=== PATIENT | male | born 1955 | race Caucasian/White ===

== ENCOUNTER 2021-06-03 12:25 | Inpatient (IN) | payer MEDICARE, OTHER ==
[~2021-06-03] VITALS: Ht 172.7 cm; Wt 66.7 kg
[~2021-06-03 12:25] MED LIST: ASPIRIN ENTERI325 MG PO; ATORVASTATIN CA20 MG PO; LEVAQUIN500 MG PO; METOPROLOL TART25 MG PO
[2021-06-03] MEDS ORDERED: ONDANSETRON HCL INJ 2MG/ML 2ML 2 MG/ML VIAL IV PRN (13:15)
[2021-06-03 15:36] LABS: BASOPHILS % 0.2 % (0.0-1.0); LYMPHOCYTES % 20.4 % (18.0-39.1); MEAN CORPUSCULAR HEMOGLOBIN 30.6 pg (28-32); MEAN CORPUSCULAR HGB CONC 32.8 g/dL (31-35); MEAN CORPUSCULAR VOLUME 93.5 fL (81-99); MONOCYTES # (AUTO) 0.6 (0.2-0.8); MONOCYTES % 11.4 % (4.4-11.3); NEUTROPHILS # (AUTO) 3.4 (2.1-6.9); NEUTROPHILS % 66.8 % (38.7-80.0); RED BLOOD COUNT 1.86 x10e6/uL (4.3-5.7); RED CELL DISTRIBUTION WIDTH 18.6 % (11.7-14.4)
[2021-06-03 15:43] LABS: HEMATOCRIT 17.4 % (38.2-49.6); HEMOGLOBIN 5.7 g/dL (14.0-18.0); PLATELET COUNT 21 x10e3/uL (140-360)
[2021-06-03 15:48] LABS: PARTIAL THROMBOPLASTIN TIME 20.2 seconds (23.8-35.5)
[2021-06-03 15:55] LABS: ALBUMIN 3.1 g/dL (3.5-5.0); ALBUMIN/GLOBULIN RATIO 0.8 (0.8-2.0); ANION GAP 12.8 mmol/L (8-16); CALCIUM 8.1 mg/dL (8.4-10.2); CREATININE, SERUM 0.75 mg/dL (0.72-1.25); POTASSIUM 4.8 mmol/L (3.5-5.1)
[2021-06-03] MEDS ORDERED: FUROSEMIDE INJ 10 MG/ML 2 ML VIAL IV PRN (16:00)
[2021-06-03 16:06] LABS: CREATINE KINASE MB 0.6 ng/mL (0-5.0)
[2021-06-03 16:11] VITALS: BP 121/63
[2021-06-03 16:12] VITALS: BP 121/63
[2021-06-03] MEDS ORDERED: ASPIRIN325 MG PO (16:28)
[2021-06-03] MEDS ORDERED: ATORVASTATIN CA20 MG PO (16:28)
[2021-06-03] MEDS ORDERED: METOPROLOL SUCC25 MG PO (16:28)
[2021-06-03] MEDS ORDERED: SODIUM CHLORIDE 0.9% 250ML 250 ML IV ONE (16:30)
[2021-06-03] MEDS: BENZONATATE 100 MG CAP PO SCH (17:30)
[2021-06-03 20:22] VITALS: BP 99/57
[2021-06-03 20:27] VITALS: BP 99/57
[2021-06-03] MEDS: ATORVASTATIN 20 MG TAB PO SCH (20:40)
[2021-06-04] VITALS (9 sets, daily range): BP systolic 99–139; BP diastolic 56–93
[2021-06-04] MEDS ORDERED: SODIUM CHLORIDE 0.9% 500ML 500 ML ONE
[2021-06-04 05:31] LABS: BASOPHILS % 0.4 % (0.0-1.0); EOSINOPHILS % 0.2 % (0.0-6.0); HEMATOCRIT 26.6 % (38.2-49.6); HEMOGLOBIN 8.9 g/dL (14.0-18.0); LYMPHOCYTES # (AUTO) 1.1 (1.0-3.2); LYMPHOCYTES % 21.6 % (18.0-39.1); MEAN CORPUSCULAR HEMOGLOBIN 30.3 pg (28-32); MEAN CORPUSCULAR HGB CONC 33.5 g/dL (31-35); MEAN CORPUSCULAR VOLUME 90.5 fL (81-99); MONOCYTES # (AUTO) 0.6 (0.2-0.8); NEUTROPHILS # (AUTO) 3.3 (2.1-6.9); RED BLOOD COUNT 2.94 x10e6/uL (4.3-5.7); RED CELL DISTRIBUTION WIDTH 16.5 % (11.7-14.4)
[2021-06-04 05:54] LABS: PLATELET COUNT 10 x10e3/uL (140-360)
[2021-06-04 06:14] LABS: ALBUMIN/GLOBULIN RATIO 0.9 (0.8-2.0); ANION GAP 11.4 mmol/L (8-16); CALCIUM 8.5 mg/dL (8.4-10.2); CREATININE, SERUM 0.72 mg/dL (0.72-1.25); POTASSIUM 4.4 mmol/L (3.5-5.1)
[2021-06-04 06:30] LABS: MAGNESIUM 2.1 MG/DL (1.3-2.1)
[2021-06-04 06:37] LABS: CHOL/HDL RATIO 3.3 (3.9-4.7)
[2021-06-04] MEDS: FAMOTIDINE 20 MG TAB PO SCH ×2 (08:00→17:31)
[2021-06-04 08:03] LABS: LYMPHOCYTES % (MANUAL) 20 % (19-48); MONOCYTES % (MANUAL) 9 % (3.4-9.0); NEUTROPHILS % (MANUAL) 68 % (40-74); NUCLEATED RED BLOOD CELLS 1; PLATELET ESTIMATE MARKEDLY DECREASED; PLATELET MORPHOLOGY COMMENT NORMAL; RBC MORPHOLOGY COMMENT NORMAL
[2021-06-04] MEDS: METOPROLOL SUCCINATE 25 MG TAB XL PO SCH (09:00)
[2021-06-04] MEDS: BENZONATATE 100 MG CAP PO SCH ×3 (09:00→17:31)
[2021-06-04] MEDS: ASPIRIN 325 MG TAB PO SCH (09:00)
[2021-06-04] MEDS ORDERED: SODIUM CHLORIDE 0.9% 250ML 250 ML ONE (12:37)
[2021-06-04 17:21] LABS: BASOPHILS % 0.2 % (0.0-1.0); EOSINOPHILS % 0.2 % (0.0-6.0); HEMATOCRIT 27.8 % (38.2-49.6); HEMOGLOBIN 9.1 g/dL (14.0-18.0); LYMPHOCYTES # (AUTO) 1.2 (1.0-3.2); MEAN CORPUSCULAR HEMOGLOBIN 30.4 pg (28-32); MEAN CORPUSCULAR HGB CONC 32.7 g/dL (31-35); MONOCYTES # (AUTO) 0.6 (0.2-0.8); MONOCYTES % 10.5 % (4.4-11.3); NEUTROPHILS # (AUTO) 3.4 (2.1-6.9); RED BLOOD COUNT 2.99 x10e6/uL (4.3-5.7); RED CELL DISTRIBUTION WIDTH 17.1 % (11.7-14.4)
[2021-06-04 17:25] LABS: PLATELET COUNT 53 x10e3/uL (140-360)
[2021-06-04] MEDS: ATORVASTATIN 20 MG TAB PO SCH (20:39)
[2021-06-05] VITALS (7 sets, daily range): BP systolic 117–161; BP diastolic 67–79
[2021-06-05 06:12] LABS: BASOPHILS % 0.2 % (0.0-1.0); EOSINOPHILS % 0.2 % (0.0-6.0); HEMATOCRIT 26.1 % (38.2-49.6); HEMOGLOBIN 8.5 g/dL (14.0-18.0); LYMPHOCYTES # (AUTO) 1.3 (1.0-3.2); LYMPHOCYTES % 28.1 % (18.0-39.1); MEAN CORPUSCULAR HEMOGLOBIN 29.9 pg (28-32); MEAN CORPUSCULAR HGB CONC 32.6 g/dL (31-35); MEAN CORPUSCULAR VOLUME 91.9 fL (81-99); MONOCYTES # (AUTO) 0.5 (0.2-0.8); MONOCYTES % 10.8 % (4.4-11.3); NEUTROPHILS # (AUTO) 2.6 (2.1-6.9); NEUTROPHILS % 59.4 % (38.7-80.0); RED BLOOD COUNT 2.84 x10e6/uL (4.3-5.7)
[2021-06-05 06:16] LABS: PLATELET COUNT 36 x10e3/uL (140-360)
[2021-06-05 06:41] LABS: INR 1.02; PROTHROMBIN TIME 14.2 seconds (11.9-14.5)
[2021-06-05] MEDS: FAMOTIDINE 20 MG TAB PO SCH ×2 (07:30→17:21)
[2021-06-05 08:05] LABS: BAND NEUTROPHILS % (MANUAL) 1 %; LYMPHOCYTES % (MANUAL) 22 % (19-48); MONOCYTES % (MANUAL) 10 % (3.4-9.0); NEUTROPHILS % (MANUAL) 67 % (40-74)
[2021-06-05 08:06] LABS: PLATELET ESTIMATE MARKEDLY DECREASED; PLATELET MORPHOLOGY COMMENT NORMAL; RBC MORPHOLOGY COMMENT NORMAL
[2021-06-05] MEDS: ASPIRIN 325 MG TAB PO SCH (09:00)
[2021-06-05] MEDS: METOPROLOL SUCCINATE 25 MG TAB XL PO SCH (09:00)
[2021-06-05] MEDS: BENZONATATE 100 MG CAP PO SCH ×2 (09:24→17:21)
[2021-06-05] MEDS ORDERED: LIDOCAINE HCL 1% LOCAL INJ 20 ML VIAL ONE (14:33)
[2021-06-05] MEDS ORDERED: FENTANYL CITRATE/PF 100MCG/2 ML INJ ONE (15:24)
[2021-06-05] MEDS ORDERED: MIDAZOLAM HCL 2 MG/2 ML VIAL ONE (15:24)
[2021-06-05] MEDS ORDERED: SODIUM CHLORIDE 0.9% 250ML 250 ML ONE (15:24)
[2021-06-05] MEDS: ATORVASTATIN 20 MG TAB PO SCH (20:31)
[2021-06-06] VITALS: BP 118/75
[2021-06-06 04:00] VITALS: BP 131/76
[2021-06-06 05:29] LABS: BASOPHILS % 0.3 % (0.0-1.0); EOSINOPHILS % 0.3 % (0.0-6.0); HEMATOCRIT 24.5 % (38.2-49.6); LYMPHOCYTES # (AUTO) 0.7 (1.0-3.2); LYMPHOCYTES % 20.4 % (18.0-39.1); MEAN CORPUSCULAR HEMOGLOBIN 30.1 pg (28-32); MEAN CORPUSCULAR HGB CONC 32.7 g/dL (31-35); MEAN CORPUSCULAR VOLUME 92.1 fL (81-99); MONOCYTES # (AUTO) 0.4 (0.2-0.8); MONOCYTES % 11.2 % (4.4-11.3); NEUTROPHILS # (AUTO) 2.4 (2.1-6.9); RED BLOOD COUNT 2.66 x10e6/uL (4.3-5.7); RED CELL DISTRIBUTION WIDTH 16.8 % (11.7-14.4)
[2021-06-06 05:44] LABS: PLATELET COUNT 22 x10e3/uL (140-360)
[2021-06-06 05:47] LABS: ALBUMIN 2.8 g/dL (3.5-5.0); ALBUMIN/GLOBULIN RATIO 0.9 (0.8-2.0); CREATININE, SERUM 0.71 mg/dL (0.72-1.25)
[2021-06-06 07:12] LABS: LYMPHOCYTES % (MANUAL) 13 % (19-48); MONOCYTES % (MANUAL) 9 % (3.4-9.0); MYELOCYTES % (MANUAL) 1 % (0-0); NEUTROPHILS % (MANUAL) 77 % (40-74)
[2021-06-06 07:13] LABS: PLATELET ESTIMATE MARKEDLY DECREASED; PLATELET MORPHOLOGY COMMENT NORMAL; RBC MORPHOLOGY COMMENT NORMAL
[2021-06-06 08:00] VITALS: BP 136/77
[2021-06-06] MEDS ORDERED: ONDANSETRON HCL 4 MG ORAL DISINTEGRATING TAB SL PRN (08:00)
[2021-06-06 08:02] VITALS: BP 136/77
[2021-06-06] MEDS: BENZONATATE 100 MG CAP PO SCH (08:44)
[2021-06-06] MEDS: FAMOTIDINE 20 MG TAB PO SCH (08:44)
[2021-06-06] MEDS: METOPROLOL SUCCINATE 25 MG TAB XL PO SCH (08:47)
[2021-06-06] MEDS: ASPIRIN 325 MG TAB PO SCH (08:47)
[2021-06-06 12:00] VITALS: BP 125/73
[2021-06-06] MEDS ORDERED: DOCUSATE SODIUM 100 MG CAP PO ONE (15:00)
[2021-06-06] MEDS ORDERED: SODIUM CHLORIDE 0.9% 250ML 250 ML ONE (15:19)
[2021-06-06 16:00] VITALS: BP 135/76
[2021-06-06] MEDS ORDERED: HEPARIN 500 UNITS/5ML MDV INJ ONE (17:15)
== END 2021-06-06 17:30 | disposition home or self-care (01) | DRG 835 ==
LOC: ER 12:35 → ERHOLD 13:18 → MED/SURG3 15:40 → OBSVTOIN 06-05 12:13 → UNDODISIN 06-06 10:59
PROVIDERS: ADMIT Internal Medicine; ATTEND Internal Medicine
PROC: 30233N1 Transfusion of Nonautologous Red Blood Cells into Peripheral Vein, Percutaneous Approach (ICD-10-PCS; 2021-06-03)
PROC: 30233R1 Transfusion of Nonautologous Platelets into Peripheral Vein, Percutaneous Approach (ICD-10-PCS; 2021-06-04)
PROC: 07DR3ZX Extraction of Iliac Bone Marrow, Percutaneous Approach, Diagnostic (ICD-10-PCS; principal; 2021-06-05)
DX: C92.00 Acute myeloblastic leukemia, not having achieved remission (principal); D62 Acute posthemorrhagic anemia; D61.818 Other pancytopenia; Z85.118 Personal history of other malignant neoplasm of bronchus and lung; Z87.891 Personal history of nicotine dependence; I25.10 Atherosclerotic heart disease of native coronary artery without angina pectoris; D63.0 Anemia in neoplastic disease; Z95.5 Presence of coronary angioplasty implant and graft; J44.9 Chronic obstructive pulmonary disease, unspecified; E11.51 Type 2 diabetes mellitus with diabetic peripheral angiopathy without gangrene; D69.59 Other secondary thrombocytopenia; Z85.21 Personal history of malignant neoplasm of larynx; D46.9 Myelodysplastic syndrome, unspecified; Z79.4 Long term (current) use of insulin
CPT/HCPCS: 36415; 38222; 74470; 77012; 80053; 80061; 82550; 82553; 83036; 83735; 83880; 84484; 85025; 85610; 85730; 86850; 86900; 86920; 93005; 94799; 99284; G0378; J2001; J2250; J2405; J3010; J7040; J7050; P9016; P9034; U0002

== ENCOUNTER 2021-06-11 15:11 | Emergency (ER) | payer MEDICARE ==
[~2021-06-11] VITALS: Ht 172.7 cm; Wt 66.7 kg
[~2021-06-11 15:11] MED LIST changes: +ASPIRIN325 MG PO; +METOPROLOL SUCC25 MG PO
[2021-06-11 16:05] LABS: BASOPHILS % 0.3 % (0.0-1.0); EOSINOPHILS % 0.6 % (0.0-6.0); HEMATOCRIT 22.7 % (38.2-49.6); HEMOGLOBIN 7.3 g/dL (14.0-18.0); LYMPHOCYTES # (AUTO) 0.8 (1.0-3.2); LYMPHOCYTES % 25.4 % (18.0-39.1); MEAN CORPUSCULAR HEMOGLOBIN 30.7 pg (28-32); MEAN CORPUSCULAR HGB CONC 32.2 g/dL (31-35); MEAN CORPUSCULAR VOLUME 95.4 fL (81-99); MONOCYTES # (AUTO) 0.3 (0.2-0.8); MONOCYTES % 8.8 % (4.4-11.3); NEUTROPHILS # (AUTO) 2.1 (2.1-6.9); NEUTROPHILS % 64.6 % (38.7-80.0); RED BLOOD COUNT 2.38 x10e6/uL (4.3-5.7); RED CELL DISTRIBUTION WIDTH 17.1 % (11.7-14.4)
[2021-06-11 16:09] LABS: PLATELET COUNT 5 x10e3/uL (140-360)
[2021-06-11 16:21] LABS: INR 0.96; PROTHROMBIN TIME 13.5 seconds (11.9-14.5)
[2021-06-11 16:22] LABS: PARTIAL THROMBOPLASTIN TIME 29.4 seconds (23.8-35.5)
[2021-06-11 16:30] LABS: ANION GAP 12.1 mmol/L (8-16); CALCIUM 8.5 mg/dL (8.4-10.2); CREATININE, SERUM 0.83 mg/dL (0.72-1.25); POTASSIUM 4.1 mmol/L (3.5-5.1)
[2021-06-11] MEDS ORDERED: SODIUM CHLORIDE 0.9% 250ML 250 ML IV ONE (18:30)
[2021-06-11] MEDS ORDERED: SODIUM CHLORIDE 0.9% 250ML 250 ML ONE (18:34)
[2021-06-11 23:09] VITALS: BP 131/73
== END 2021-06-11 22:40 | disposition home or self-care (01) ==
LOC: ER 15:34
DX: D64.9 Anemia, unspecified (principal); E78.5 Hyperlipidemia, unspecified; Z85.818 Personal history of malignant neoplasm of other sites of lip, oral cavity, and pharynx; Z85.118 Personal history of other malignant neoplasm of bronchus and lung; Z95.5 Presence of coronary angioplasty implant and graft
CPT/HCPCS: 36415; 80048; 85025; 85049; 85610; 85730; 86850; 86900; 99284; J7050; P9034

== ENCOUNTER 2021-06-19 14:30 | Observation (INO) | payer MEDICARE ==
[~2021-06-19] VITALS: Ht 172.7 cm; Wt 64.0 kg
[2021-06-19] MEDS ORDERED: SODIUM CHLORIDE 0.9% 1000ML 1,000 ML IV STA (14:52)
[2021-06-19 15:23] LABS: BASOPHILS % 0.2 % (0.0-1.0); EOSINOPHILS # (AUTO) 0.1 (0.0-0.4); EOSINOPHILS % 1.1 % (0.0-6.0); LYMPHOCYTES # (AUTO) 1.1 (1.0-3.2); LYMPHOCYTES % 25.3 % (18.0-39.1); MEAN CORPUSCULAR HEMOGLOBIN 30.2 pg (28-32); MEAN CORPUSCULAR HGB CONC 32.3 g/dL (31-35); MEAN CORPUSCULAR VOLUME 93.6 fL (81-99); MONOCYTES # (AUTO) 0.5 (0.2-0.8); NEUTROPHILS # (AUTO) 2.7 (2.1-6.9); NEUTROPHILS % 60.3 % (38.7-80.0); RED BLOOD COUNT 2.02 x10e6/uL (4.3-5.7); RED CELL DISTRIBUTION WIDTH 17.2 % (11.7-14.4)
[2021-06-19 15:28] LABS: HEMOGLOBIN 6.1 g/dL (14.0-18.0)
[2021-06-19 15:29] LABS: HEMATOCRIT 18.9 % (38.2-49.6); PLATELET COUNT 5 x10e3/uL (140-360)
[2021-06-19 15:30] LABS: INR 1.04; PARTIAL THROMBOPLASTIN TIME 29.3 seconds (23.8-35.5); PROTHROMBIN TIME 14.4 seconds (11.9-14.5)
[2021-06-19 15:37] LABS: ALBUMIN 3.6 g/dL (3.5-5.0); ALBUMIN/GLOBULIN RATIO 1.1 (0.8-2.0); ANION GAP 12.2 mmol/L (8-16); CALCIUM 8.3 mg/dL (8.4-10.2); CREATININE, SERUM 0.78 mg/dL (0.72-1.25); POTASSIUM 4.2 mmol/L (3.5-5.1)
[2021-06-19 15:44] LABS: CREATINE KINASE MB 0.4 ng/mL (0-5.0)
[2021-06-19] MEDS ORDERED: SODIUM CHLORIDE 0.9% 250ML 250 ML IV ONE (15:45)
[2021-06-19] MEDS ORDERED: HYDROCODONE/APAP 7.5MG-325MG 1 EA TAB PO PRN (16:00)
[2021-06-19] MEDS ORDERED: ONDANSETRON HCL INJ 2MG/ML 2ML 2 MG/ML VIAL IV PRN (16:15)
[2021-06-19 20:00] VITALS: BP 112/59
[2021-06-19 20:26] VITALS: BP 112/59
[2021-06-19] MEDS ORDERED: SODIUM CHLORIDE 0.9% 250ML 250 ML ONE (20:47)
[2021-06-19 20:59] VITALS: BP 112/59
[2021-06-19] MEDS: FUROSEMIDE INJ 10 MG/ML 2 ML VIAL IV PRN (23:24)
[2021-06-20] VITALS (8 sets, daily range): BP systolic 100–156; BP diastolic 52–89
[2021-06-20] MEDS: FUROSEMIDE INJ 10 MG/ML 2 ML VIAL IV PRN ×2 (02:55→06:05)
[2021-06-20] MEDS ORDERED: SODIUM CHLORIDE 0.9% 250ML 250 ML ONE (08:09)
[2021-06-20] MEDS: CEFTRIAXONE 1 GM in SODIUM CHLORIDE 0.9% 50ML 50 ML IV SCH (09:30)
[2021-06-20 09:55] LABS: BASOPHILS % 0.2 % (0.0-1.0); EOSINOPHILS # (AUTO) 0.1 (0.0-0.4); EOSINOPHILS % 1.1 % (0.0-6.0); HEMATOCRIT 25.6 % (38.2-49.6); HEMOGLOBIN 8.8 g/dL (14.0-18.0); LYMPHOCYTES # (AUTO) 1.1 (1.0-3.2); LYMPHOCYTES % 25.3 % (18.0-39.1); MEAN CORPUSCULAR HEMOGLOBIN 30.1 pg (28-32); MEAN CORPUSCULAR HGB CONC 34.4 g/dL (31-35); MEAN CORPUSCULAR VOLUME 87.7 fL (81-99); MONOCYTES # (AUTO) 0.5 (0.2-0.8); MONOCYTES % 12.3 % (4.4-11.3); NEUTROPHILS # (AUTO) 2.6 (2.1-6.9); NEUTROPHILS % 59.5 % (38.7-80.0); RED BLOOD COUNT 2.92 x10e6/uL (4.3-5.7); RED CELL DISTRIBUTION WIDTH 16.4 % (11.7-14.4)
[2021-06-20 10:05] LABS: PLATELET COUNT 37 x10e3/uL (140-360)
[2021-06-20 10:15] LABS: ALBUMIN 3.5 g/dL (3.5-5.0); ANION GAP 9.8 mmol/L (8-16); CALCIUM 8.4 mg/dL (8.4-10.2); CREATININE, SERUM 0.77 mg/dL (0.72-1.25); POTASSIUM 3.8 mmol/L (3.5-5.1)
[2021-06-20] MEDS ORDERED: CEFTRIAXONE 1 GM in SODIUM CHLORIDE 0.9% 50ML 50 ML IV SCH (17:00)
[2021-06-21 04:00] VITALS: BP 105/70
[2021-06-21 05:46] LABS: EOSINOPHILS % 1.4 % (0.0-6.0); HEMATOCRIT 26.3 % (38.2-49.6); HEMOGLOBIN 8.8 g/dL (14.0-18.0); LYMPHOCYTES # (AUTO) 0.9 (1.0-3.2); LYMPHOCYTES % 31.2 % (18.0-39.1); MEAN CORPUSCULAR HEMOGLOBIN 30.1 pg (28-32); MEAN CORPUSCULAR HGB CONC 33.5 g/dL (31-35); MEAN CORPUSCULAR VOLUME 90.1 fL (81-99); MONOCYTES # (AUTO) 0.3 (0.2-0.8); MONOCYTES % 10.1 % (4.4-11.3); NEUTROPHILS # (AUTO) 1.6 (2.1-6.9); NEUTROPHILS % 56.6 % (38.7-80.0); RED BLOOD COUNT 2.92 x10e6/uL (4.3-5.7); RED CELL DISTRIBUTION WIDTH 16.2 % (11.7-14.4)
[2021-06-21 05:59] LABS: ANION GAP 10.9 mmol/L (8-16); CALCIUM 8.1 mg/dL (8.4-10.2); CREATININE, SERUM 0.71 mg/dL (0.72-1.25); POTASSIUM 3.9 mmol/L (3.5-5.1)
[2021-06-21 06:02] LABS: PLATELET COUNT 26 x10e3/uL (140-360)
[2021-06-21 07:02] LABS: EOSINOPHILS % (MANUAL) 1 % (0-7); LYMPHOCYTES % (MANUAL) 24 % (19-48); MONOCYTES % (MANUAL) 8 % (3.4-9.0); NEUTROPHILS % (MANUAL) 67 % (40-74); PLATELET ESTIMATE MARKEDLY DECREASED; PLATELET MORPHOLOGY COMMENT NORMAL; RBC MORPHOLOGY COMMENT NORMAL
[2021-06-21 08:49] VITALS: BP 134/98
[2021-06-21] MEDS: CEFTRIAXONE 1 GM in SODIUM CHLORIDE 0.9% 50ML 50 ML IV SCH (09:07)
[2021-06-21 09:08] VITALS: BP 134/98
[2021-06-21 13:01] VITALS: BP 108/70
[2021-06-21] MEDS ORDERED: SODIUM CHLORIDE 0.9% 250ML 250 ML ONE (15:02)
[2021-06-21 16:33] VITALS: BP 134/77
[2021-06-21] MEDS ORDERED: HEPARIN 500 UNITS/5ML MDV INJ PRN (17:00)
== END 2021-06-21 17:56 | disposition home or self-care (01) ==
LOC: ER 14:48 → ERHOLD 16:22 → MED/SURG 19:03
PROVIDERS: ADMIT Internal Medicine; ATTEND Internal Medicine
DX: C92.00 Acute myeloblastic leukemia, not having achieved remission (principal); D50.0 Iron deficiency anemia secondary to blood loss (chronic); D61.818 Other pancytopenia; D63.8 Anemia in other chronic diseases classified elsewhere; C34.90 Malignant neoplasm of unspecified part of unspecified bronchus or lung; E78.5 Hyperlipidemia, unspecified; I25.10 Atherosclerotic heart disease of native coronary artery without angina pectoris; Z95.5 Presence of coronary angioplasty implant and graft; Z20.822 Contact with and (suspected) exposure to COVID-19; D69.6 Thrombocytopenia, unspecified
CPT/HCPCS: 36415 ×3; 36430; 80048; 80053 ×2; 82550; 82553; 84484; 85025 ×3; 85610; 85730; 86850; 86900; 86920; 93005; 94799 ×3; 99284; C9113; G0378 ×3; J0696 ×2; J1940 ×2; J7030; J7050 ×3; P9016; P9034 ×2; U0002

== ENCOUNTER 2021-07-02 14:08 | Inpatient (IN) | payer MEDICARE ==
[~2021-07-02] VITALS: Ht 175.3 cm; Wt 67.6 kg
[2021-07-02] MEDS ORDERED: SODIUM CHLORIDE 0.9% 1000ML 1,000 ML IV STA (15:47)
[2021-07-02] MEDS ORDERED: SODIUM CHLORIDE 0.9% 1000ML 1,000 ML IV ONE (16:15)
[2021-07-02 16:29] LABS: EOSINOPHILS % 1.3 % (0.0-6.0); LYMPHOCYTES # (AUTO) 0.6 (1.0-3.2); LYMPHOCYTES % 18.3 % (18.0-39.1); MEAN CORPUSCULAR HEMOGLOBIN 29.9 pg (28-32); MEAN CORPUSCULAR HGB CONC 33.3 g/dL (31-35); MEAN CORPUSCULAR VOLUME 89.8 fL (81-99); MONOCYTES # (AUTO) 0.6 (0.2-0.8); MONOCYTES % 20.3 % (4.4-11.3); NEUTROPHILS # (AUTO) 1.8 (2.1-6.9); NEUTROPHILS % 58.8 % (38.7-80.0); RED BLOOD COUNT 1.67 x10e6/uL (4.3-5.7); RED CELL DISTRIBUTION WIDTH 15.8 % (11.7-14.4)
[2021-07-02 16:34] LABS: PLATELET COUNT 4 x10e3/uL (140-360)
[2021-07-02 16:41] LABS: INR 1.13; PROTHROMBIN TIME 15.4 seconds (11.9-14.5)
[2021-07-02 16:42] LABS: PARTIAL THROMBOPLASTIN TIME 31.1 seconds (23.8-35.5)
[2021-07-02] MEDS ORDERED: FUROSEMIDE INJ 10 MG/ML 2 ML VIAL IV PRN (16:45)
[2021-07-02] MEDS ORDERED: SODIUM CHLORIDE 0.9% 250ML 250 ML IV ONE (16:45)
[2021-07-02 16:50] LABS: ALBUMIN 3.2 g/dL (3.5-5.0); ANION GAP 11.3 mmol/L (8-16); CALCIUM 7.6 mg/dL (8.4-10.2); CREATININE, SERUM 0.71 mg/dL (0.72-1.25); POTASSIUM 4.3 mmol/L (3.5-5.1)
[2021-07-02 16:57] LABS: CREATINE KINASE MB 0.4 ng/mL (0-5.0)
[2021-07-02] MEDS ORDERED: ONDANSETRON HCL INJ 2MG/ML 2ML 2 MG/ML VIAL IV PRN ×2 (17:30→18:30)
[2021-07-02] MEDS ORDERED: POTASSIUM CHLORIDE 20 MEQ TAB CR PO PRN (18:30)
[2021-07-02] MEDS ORDERED: HYDROCODONE/APAP 5MG-325MG TAB PO PRN (18:30)
[2021-07-02] MEDS ORDERED: DOCUSATE SODIUM 100 MG CAP PO PRN (18:30)
[2021-07-02] MEDS ORDERED: ALBUTEROL/IPRATROPIUM 3 ML NEB NEB PRN (18:30)
[2021-07-02] MEDS ORDERED: DIPHENHYDRAMINE HCL 25 MG CAP PO PRN (18:30)
[2021-07-02] MEDS ORDERED: LIDOCAINE 4% PATCH TP PRN (18:30)
[2021-07-02] MEDS ORDERED: MELATONIN 5 MG TABLET PO PRN (18:30)
[2021-07-02] MEDS ORDERED: ACETAMINOPHEN 325 MG TAB PO PRN (18:30)
[2021-07-02] MEDS ORDERED: DEXTROSE 50% SYRINGE 50 ML IV PRN (18:30)
[2021-07-02 19:47] LABS: HYPOCHROMASIA MODERATE; LYMPHOCYTES % (MANUAL) 12 % (19-48); MONOCYTES % (MANUAL) 10 % (3.4-9.0); NEUTROPHILS % (MANUAL) 77 % (40-74); PLATELET MORPHOLOGY COMMENT NORMAL; RBC MORPHOLOGY COMMENT NORMAL
[2021-07-02 19:48] LABS: PLATELET ESTIMATE MARKEDLY DECREASED
[2021-07-02] MEDS: PIPERACILLIN/TAZOBACTAM 3.375 GM in SODIUM CHLORIDE 0.9% 50ML 50 ML IV SCH (20:58)
[2021-07-02 21:15] VITALS: BP 122/66
[2021-07-02 21:19] VITALS: BP 123/70
[2021-07-02 21:21] VITALS: BP 123/70
[2021-07-02] MEDS ORDERED: SODIUM CHLORIDE 0.9% 250ML 250 ML ONE ×2 (21:55)
[2021-07-02 22:00] VITALS: BP 108/49
[2021-07-02 23:00] VITALS: BP 108/57
[2021-07-03] VITALS (13 sets, daily range): BP systolic 115–136; BP diastolic 57–77
[2021-07-03] MEDS: PIPERACILLIN/TAZOBACTAM 3.375 GM in SODIUM CHLORIDE 0.9% 50ML 50 ML IV SCH ×2 (05:40→12:18)
[2021-07-03 07:43] LABS: BASOPHILS % 0.2 % (0.0-1.0); EOSINOPHILS # (AUTO) 0.1 (0.0-0.4); EOSINOPHILS % 1.6 % (0.0-6.0); HEMATOCRIT 31.8 % (38.2-49.6); HEMOGLOBIN 10.5 g/dL (14.0-18.0); LYMPHOCYTES # (AUTO) 0.9 (1.0-3.2); LYMPHOCYTES % 20.5 % (18.0-39.1); MEAN CORPUSCULAR HEMOGLOBIN 29.3 pg (28-32); MEAN CORPUSCULAR VOLUME 88.8 fL (81-99); MONOCYTES # (AUTO) 0.7 (0.2-0.8); MONOCYTES % 16.4 % (4.4-11.3); NEUTROPHILS # (AUTO) 2.6 (2.1-6.9); NEUTROPHILS % 59.5 % (38.7-80.0); RED BLOOD COUNT 3.58 x10e6/uL (4.3-5.7); RED CELL DISTRIBUTION WIDTH 15.3 % (11.7-14.4)
[2021-07-03 07:46] LABS: PLATELET COUNT 18 x10e3/uL (140-360)
[2021-07-03 08:01] LABS: ANION GAP 11.1 mmol/L (8-16); CALCIUM 7.8 mg/dL (8.4-10.2); CREATININE, SERUM 0.68 mg/dL (0.72-1.25); POTASSIUM 4.1 mmol/L (3.5-5.1)
[2021-07-03] MEDS ORDERED: SODIUM CHLORIDE 0.9% 250ML 250 ML ONE (11:13)
[2021-07-03 11:34] LABS: EOSINOPHILS % (MANUAL) 3 % (0-7); LYMPHOCYTES % (MANUAL) 20 % (19-48); MONOCYTES % (MANUAL) 9 % (3.4-9.0); MYELOCYTES % (MANUAL) 2 % (0-0); NEUTROPHILS % (MANUAL) 66 % (40-74); NUCLEATED RED BLOOD CELLS 1; PLATELET ESTIMATE MARKEDLY DECREASED; PLATELET MORPHOLOGY COMMENT NORMAL; RBC MORPHOLOGY COMMENT NORMAL
== END 2021-07-03 15:26 | disposition hospice, home (50) | DRG 834 ==
LOC: ER 15:47 → ERHOLD 17:29 → OBSVTOIN 19:46 → ICU 20:43
PROVIDERS: ADMIT Internal Medicine; ATTEND Internal Medicine
PROC: 30233R1 Transfusion of Nonautologous Platelets into Peripheral Vein, Percutaneous Approach (ICD-10-PCS; principal; 2021-07-02)
PROC: 30233N1 Transfusion of Nonautologous Red Blood Cells into Peripheral Vein, Percutaneous Approach (ICD-10-PCS; 2021-07-02)
DX: C92.00 Acute myeloblastic leukemia, not having achieved remission (principal); E43 Unspecified severe protein-calorie malnutrition; J69.0 Pneumonitis due to inhalation of food and vomit; K92.2 Gastrointestinal hemorrhage, unspecified; C34.90 Malignant neoplasm of unspecified part of unspecified bronchus or lung; Z85.21 Personal history of malignant neoplasm of larynx; D69.6 Thrombocytopenia, unspecified; Z66 Do not resuscitate; D63.0 Anemia in neoplastic disease; D46.9 Myelodysplastic syndrome, unspecified
CPT/HCPCS: 36415; 71045; 80048; 80053; 82550; 82553; 83735; 84484; 85025; 85610; 85730; 86850; 86900; 86920; 93005; 94799; 99285; J1940; J2543; J7030; J7050; P9016; P9034; U0002